=== PATIENT | male | born 1955 | race Caucasian/White ===

== ENCOUNTER 2018-06-16 12:39 | Outpatient (CLI) | payer OTHER ==
[~2018-06-16 12:39] MED LIST: AZOPT5 ML OP; CODE1TAB37 PO; COMBIGAN EYE DRO5 ML OP; LUMIGAN2.5 M1 OP; LUMIGAN2.5 ML OP; LYRICA50 MG; PNEU16DI2; QUETIAPINE FUMA25 MG PO; TAMS0.4C; TIZANIDINE HCL4 M1 PO; ULTRAM50 MG
== END 2018-06-16 12:50 | disposition home or self-care (01) ==
LOC: LAB 12:39
DX: C61 Malignant neoplasm of prostate (principal)

== ENCOUNTER → 2019-09-26 10:30 | Outpatient (CLI) | payer OTHER | END | disposition home or self-care (01) | LOC: LAB 10:30 | DX: C61 Malignant neoplasm of prostate (principal) ==

== ENCOUNTER 2020-02-29 14:55 | Outpatient (CLI) | payer OTHER | END 2020-02-29 15:04 | disposition home or self-care (01) | LOC: LAB 14:55 | PROVIDERS: ATTEND Urology | DX: C61 Malignant neoplasm of prostate (principal) ==

== ENCOUNTER 2020-09-05 12:51 | Outpatient (CLI) | payer OTHER | END 2020-09-05 12:56 | disposition home or self-care (01) | LOC: LAB 12:51 | PROVIDERS: ATTEND Urology | DX: C61 Malignant neoplasm of prostate (principal) ==

== ENCOUNTER 2021-02-28 15:08 | Outpatient (CLI) | payer OTHER | END 2021-02-28 15:28 | disposition home or self-care (01) | LOC: LAB 15:08 | PROVIDERS: ATTEND Urology | DX: R97.21 Rising PSA following treatment for malignant neoplasm of prostate (principal) ==

== ENCOUNTER 2021-07-22 14:33 | Outpatient (CLI) | payer OTHER | END 2021-07-22 15:00 | disposition home or self-care (01) | LOC: LAB 14:33 | PROVIDERS: ATTEND Urology | DX: C61 Malignant neoplasm of prostate (principal) ==

== ENCOUNTER 2021-09-17 14:35 | Outpatient (CLI) | payer OTHER | END 2021-09-17 14:36 | disposition home or self-care (01) | LOC: LAB 14:35 | PROVIDERS: ATTEND Urology | DX: R97.20 Elevated prostate specific antigen [PSA] (principal) ==

== ENCOUNTER 2021-10-11 07:10 | Outpatient (CLI) | payer OTHER | END 2021-10-11 07:16 | disposition home or self-care (01) | LOC: SONOGRAMA 07:10 | PROVIDERS: ATTEND Urology | DX: R97.20 Elevated prostate specific antigen [PSA] (principal) ==

== ENCOUNTER 2022-10-27 19:25 | Emergency (ER) | payer OTHER ==
[~2022-10-27] VITALS: Ht 172.7 cm; Wt 76.2 kg
== END 2022-10-28 03:38 | disposition home or self-care (01) ==
LOC: ER 19:25
DX: K57.32 Diverticulitis of large intestine without perforation or abscess without bleeding (principal); Z88.0 Allergy status to penicillin; Z88.2 Allergy status to sulfonamides

== ENCOUNTER 2023-04-07 14:36 | Outpatient (CLI) | payer OTHER | END 2023-04-07 14:47 | disposition home or self-care (01) | LOC: LAB 14:36 | PROVIDERS: ATTEND Internal Medicine | DX: N40.1 Benign prostatic hyperplasia with lower urinary tract symptoms (principal) ==

== ENCOUNTER 2023-06-13 04:47 | Emergency (ER) | payer OTHER ==
[~2023-06-13] VITALS: Ht 172.7 cm; Wt 77.1 kg
[2023-06-13 06:07] LABS: CALCIUM 9.1 mg/dL (8.5-10.1); CREATININE SERUM 0.91 mg/dL (0.70-1.30); GFR 83.61; POTASSIUM 3.64 mEq/L (3.5-5.1)
[2023-06-13 06:11] LABS: HEMATOCRIT 42.4 % (39.0-48.0); HEMOGLOBIN 14.6 g/dL (13-16.00); MEAN CELL VOLUME 86.3 fL (80.0-100.00); MEAN CORPUSCULAR HEMOGLOBIN 29.8 pg (27.00-32.0); MEAN CORPUSCULAR HGB CONC 34.5 g/dl (32.0-36.0); PLATELET COUNT 219 K/uL (150-450); RED BLOOD COUNT 4.92 M/uL (4.00-6.00); RED CELL DISTRIBUTION WIDTH 13.4 % (11.5-14.5)
[2023-06-13 07:48] LABS: URINE APPEARANCE Clear; URINE BACTERIA 16.3 uL (0.0-1933); URINE BILIRRUBIN Negative (NEGATIVE); URINE BLOOD Trace; URINE COLOR Yellow; URINE GLUCOSE Negative (NEGATIVE); URINE LEUKOCYTE Negative; URINE NITRATE Negative; URINE PROTEIN Negative (NEGATIVE); URINE RBC 7.6 uL (0.0-20.8); URINE UROBILINOGEN 0.2 E.U./dl; URINE WBC 2.6 uL (0.0-23.2)
[2023-06-13 07:52] LABS: URINE EPITHELIAL CELLS 0.9 uL (0.0-38.8)
== END 2023-06-13 08:11 | disposition home or self-care (01) ==
LOC: ER 04:49
DX: N13.9 Obstructive and reflux uropathy, unspecified (principal); I10 Essential (primary) hypertension; Z88.8 Allergy status to other drugs, medicaments and biological substances

== ENCOUNTER 2023-06-18 10:11 | Emergency (ER) | payer OTHER ==
[~2023-06-18] VITALS: Ht 175.3 cm; Wt 77.1 kg
== END 2023-06-18 11:03 | disposition home or self-care (01) ==
LOC: ER 10:11
DX: N40.0 Benign prostatic hyperplasia without lower urinary tract symptoms (principal); I10 Essential (primary) hypertension; Z88.8 Allergy status to other drugs, medicaments and biological substances

== ENCOUNTER 2023-06-25 10:04 | Emergency (ER) | payer OTHER ==
[~2023-06-25] VITALS: Ht 175.3 cm; Wt 77.1 kg
== END 2023-06-25 14:11 | disposition home or self-care (01) ==
LOC: ER 10:04
DX: N40.0 Benign prostatic hyperplasia without lower urinary tract symptoms (principal); Z46.6 Encounter for fitting and adjustment of urinary device; Z88.8 Allergy status to other drugs, medicaments and biological substances

== ENCOUNTER 2024-04-07 23:05 | Emergency (ER) | payer OTHER ==
[~2024-04-07] VITALS: Ht 172.7 cm; Wt 79.4 kg
[2024-04-08] MEDS ORDERED: KETOROLAC TROMETHAMINE 30 MG VIAL IV STA (00:10)
[2024-04-08] MEDS ORDERED: CIPROFLOXACIN IN 5 % DEXTROSE 400 MG/200 ML PIGGYBAG IV STA (00:10)
[2024-04-08] MEDS ORDERED: RINGERS SOLUTION,LACTATED 1,000 ML IV STA (00:10)
[2024-04-08] MEDS ORDERED: MEPERIDINE HCL/PF 25 MG/ML VIAL IM STA (00:11)
[2024-04-08] MEDS ORDERED: PROMETHAZINE HCL 25 MG/ML AMPUL IM STA (00:11)
[2024-04-08] MEDS ORDERED: TAMSULOSIN HCL 0.4 MG CAP PO STA (00:21)
[2024-04-08 01:02] LABS: HEMATOCRIT 43.3 % (39.0-48.0); HEMOGLOBIN 14.7 g/dL (13-16.00); MEAN CELL VOLUME 87.2 fL (80.0-100.00); MEAN CORPUSCULAR HEMOGLOBIN 29.6 pg (27.00-32.0); MEAN CORPUSCULAR HGB CONC 33.9 g/dl (32.0-36.0); PLATELET COUNT 209 K/uL (150-450); RED BLOOD COUNT 4.97 M/uL (4.00-6.00); RED CELL DISTRIBUTION WIDTH 13.4 % (11.5-14.5)
[2024-04-08 01:39] LABS: URINE APPEARANCE Clear; URINE BILIRRUBIN Negative (NEGATIVE); URINE BLOOD Moderate; URINE COLOR Yellow; URINE GLUCOSE Negative (NEGATIVE); URINE KETONE Negative (NEGATIVE); URINE LEUKOCYTE Negative; URINE NITRATE Negative; URINE PROTEIN Negative (NEGATIVE); URINE UROBILINOGEN 0.2 E.U./dl
[2024-04-08 01:43] LABS: URINE BACTERIA 275.8 uL (0.0-1933); URINE EPITHELIAL CELLS 1.5 uL (0.0-38.8); URINE RBC 30.2 uL (0.0-20.8); URINE WBC 16.2 uL (0.0-23.2)
[2024-04-08 02:02] LABS: URINE CAST 1.22 uL (0.0-1.40)
[2024-04-08 02:18] LABS: ALBUMIN 4.2 gm/dL (3.4-5.0); BILIRUBIN TOTAL 0.22 mg/dL (0.3-1.2); CALCIUM 9.3 mg/dL (8.5-10.1); CREATININE SERUM 1.45 mg/dL (0.70-1.30); GFR 48.69; GLOBULINA 3.9 G/DL (2.4-3.5); POTASSIUM 4.1 mEq/L (3.5-5.1); TOTAL PROTEIN 8.1 gm/dL (6.4-8.2)
== END 2024-04-08 03:57 | disposition home or self-care (01) ==
LOC: ER 23:07
DX: N40.0 Benign prostatic hyperplasia without lower urinary tract symptoms (principal); R33.9 Retention of urine, unspecified; Z88.8 Allergy status to other drugs, medicaments and biological substances

== ENCOUNTER → 2024-04-19 10:40 | Outpatient (CLI) | payer OTHER | END | disposition home or self-care (01) | LOC: LAB 10:40 | PROVIDERS: ATTEND Urology | DX: N39.0 Urinary tract infection, site not specified (principal) ==